=== PATIENT | male | born 1950 | race African-American/Black ===

== ENCOUNTER 2024-12-04 12:06 | Emergency (ER) | payer MEDICARE, MEDICAID ==
[~2024-12-04] VITALS: Ht 170.2 cm; Wt 77.0 kg
[2024-12-04 12:07] VITALS: O2SAT 99
[2024-12-04] MEDS ORDERED: SODIUM CHLORIDE 0.9% 1,000 ML IV ONE (13:30)
[2024-12-04 13:55] LABS: CHLORIDE 108 mEq/L (98-107); SODIUM 136 mEq/L (136-145)
[2024-12-04 13:56] LABS: CALCIUM 9.1 mg/dL (8.7-10.4); CARBON DIOXIDE 20 mEq/L (21-32)
[2024-12-04 14:01] LABS: CREATININE 1.4 mg/dL (0.6-1.3); GLUCOSE 107 mg/dL (70-105); UREA NITROGEN BLOOD 12 mg/dL (9-23)
[2024-12-04 14:02] LABS: TROPONIN I HIGH SENSITIVITY 4 ng/L (3.0-53)
[2024-12-04 14:21] LABS: BASOPHILS % 0.5 % (0.0-2.0); LYMPHOCYTES % 26.8 % (20.0-50.0); MEAN CORPUSCULAR HEMOGLOBIN 28.4 pg (28.0-32.0); MEAN CORPUSCULAR HGB CONC 34.2 g/dL (31.0-37.0); MEAN CORPUSCULAR VOLUME 83.2 fL (80.0-94.0); MEAN PLATELET VOLUME 8.7 fl (7.4-10.4); MONOCYTES % 8.5 % (2.0-8.0); NEUTROPHILS % 62.2 % (40.0-76.0); PLATELET 253 x1000/uL (130-400); RED BLOOD CELL COUNT 4.56 mill/uL (4.7-6.1); RED CELL DISTRIBUTION WIDTH 16.5 % (11.6-14.6); WHITE BLOOD COUNT 8.6 x1000/uL (4.5-11.0)
[2024-12-04 15:02] VITALS: BP 163/89; PULSE 84; RESP 11; TEMP 36.3; O2SAT 99
== END 2024-12-04 17:56 | disposition home or self-care (01) ==
LOC: ER 12:06
DX: R55 Syncope and collapse (principal); F17.200 Nicotine dependence, unspecified, uncomplicated; Z98.890 Other specified postprocedural states
CPT/HCPCS: 99284; 80048; 85025; 84484; 36415; 93005; J7030

== ENCOUNTER 2025-03-31 13:01 | Inpatient (IN) | payer MEDICARE, MEDICAID ==
[~2025-03-31] VITALS: Ht 170.2 cm; Wt 59.4 kg
[~2025-03-31 13:01] MED LIST: AMLO5TAB88 PO; AMOX250S70 MT; ATOR10TA MT; ATOR10TA PO; BETH5TAB10 MT; CEFT1VIA15 IV; CHOL100046; ENOX40DI8 SUBCUT; FAMO20TA8 PO; FERR-63 PO; FERR-71 MT; FINA-37 PO; FINA5TAB11 PO; GABA-1180 PO; GABA-290 MT; LISI40TA21 MT; LISI40TA21 PO; MIDO5TAB4 MT; PROT40 MT; SUCR1TAB PO; SUCR1TAB30 MT; TAMS-54 MT; TAMS-54 PO; TIZA4CAP MT
[2025-03-31 13:03] VITALS: O2SAT 98
[2025-03-31] MEDS: SODIUM CHLORIDE 0.9% (SEPSIS BOLUS) IV ONE (14:13)
[2025-03-31 14:23] LABS: BASOPHILS % 0.2 % (0.0-2.0); EOSINOPHILS % 0.0 % (0.0-5.0); HEMATOCRIT. 30.5 % (42.0-52.0); HEMOGLOBIN. 9.9 g/dL (14.0-18.0); LYMPHOCYTES % 10.3 % (20.0-50.0); MEAN PLATELET VOLUME 7.3 fl (7.4-10.4); MONOCYTES % 6.8 % (2.0-8.0); NEUTROPHILS % 82.7 % (40.0-76.0); PLATELET 635 x1000/uL (130-400); RED BLOOD CELL COUNT 3.84 mill/uL (4.7-6.1); RED CELL DISTRIBUTION WIDTH 15.4 % (11.6-14.6)
[2025-03-31] MEDS: AMPICILLIN SOD/SULBACTAM NA 3 G in SODIUM CHLORIDE 0.9% 100 ML IV STA (14:25)
[2025-03-31 14:32] LABS: INR 1.2
[2025-03-31 14:38] LABS: UREA NITROGEN BLOOD 12 mg/dL (9-23)
[2025-03-31 14:39] LABS: CREATININE 1.5 mg/dL (0.6-1.3)
[2025-03-31 14:40] LABS: ASPARTATE AMINOTRANSFERASE 130 IU/L (<34); BILIRUBIN DIRECT 1.5 mg/dL (<=3.0)
[2025-03-31 14:41] LABS: BILIRUBIN TOTAL 2.0 mg/dL (0.1-1.0); PROTEIN TOTAL 7.4 g/dL (6.0-8.3)
[2025-03-31] MEDS: VANCOMYCIN 1G PREMIX 200 ML IV ONE (15:11)
[2025-03-31 20:00] VITALS: BP 123/49; PULSE 112; RESP 19; TEMP 36.6; O2SAT 98
[2025-04-01] VITALS: BP 125/80; PULSE 118; RESP 19; TEMP 36.9; O2SAT 98
[2025-04-01] MEDS ORDERED: ONDANSETRON HCL 4MG/2ML INJ IV PRN (01:00)
[2025-04-01] MEDS ORDERED: DOCUSATE SODIUM 100MG CAPSULE PO PRN (01:00)
[2025-04-01] MEDS ORDERED: ACETAMINOPHEN 325MG TABLET PO PRN (01:00)
[2025-04-01] MEDS ORDERED: DEXTROSE 50% WATER 50ML SYRINGE IV PRN (01:00)
[2025-04-01] MEDS ORDERED: CLONIDINE 0.1MG TABLET PO PRN (01:00)
[2025-04-01] MEDS ORDERED: NA PHOS,M-B/NA PHOS,DI-BA ENEMA 118ML PR PRN (01:00)
[2025-04-01] MEDS ORDERED: MAGNESIUM/ALUMINUM HYDROXIDE/SIMETHICONE 30ML UDC PO PRN (01:00)
[2025-04-01] MEDS: SODIUM CHLORIDE 0.9% 1,000 ML IV SCH (01:35)
[2025-04-01 04:00] VITALS: BP 145/71; PULSE 108; RESP 19; TEMP 36.2; O2SAT 98
[2025-04-01] MEDS: PIPERACILLIN/TAZO 3.375G/50ML 50 ML IV SCH (06:08)
[2025-04-01] MEDS: HYDROCODONE/ACETAMINOPHEN 10/325MG TABLET PO PRN (06:08)
[2025-04-01] MEDS: BLOOD SUGAR DIAGNOSTIC STRIP TEST SCH (07:07)
[2025-04-01] MEDS: INSULIN LISPRO 100 UNITS/ML SUBCUT SCH (07:50)
[2025-04-01 08:00] VITALS: BP 145/78; PULSE 100; RESP 18; TEMP 36.6; O2SAT 98
[2025-04-01 08:39] LABS: BASOPHILS % 0.4 % (0.0-2.0); EOSINOPHILS % 0.1 % (0.0-5.0); HEMATOCRIT. 26.1 % (42.0-52.0); HEMOGLOBIN. 8.6 g/dL (14.0-18.0); LYMPHOCYTES % 7.1 % (20.0-50.0); MEAN PLATELET VOLUME 7.5 fl (7.4-10.4); MONOCYTES % 6.2 % (2.0-8.0); NEUTROPHILS % 86.2 % (40.0-76.0); PLATELET 544 x1000/uL (130-400); RED BLOOD CELL COUNT 3.40 mill/uL (4.7-6.1); RED CELL DISTRIBUTION WIDTH 14.9 % (11.6-14.6)
[2025-04-01] MEDS ORDERED: PANTOPRAZOLE 40MG DR TABLET PO SCH (09:00)
[2025-04-01 09:02] LABS: CREATININE 0.8 mg/dL (0.6-1.3)
[2025-04-01 09:03] LABS: ASPARTATE AMINOTRANSFERASE 69 IU/L (<34); UREA NITROGEN BLOOD 13 mg/dL (9-23)
[2025-04-01 09:04] LABS: BILIRUBIN TOTAL 1.1 mg/dL (0.1-1.0); PHOSPHORUS 2.3 mg/dL (2.5-4.9); PROTEIN TOTAL 6.7 g/dL (6.0-8.3)
[2025-04-01] MEDS: ENOXAPARIN 40MG/0.4ML SYR SUBCUT SCH (09:39)
[2025-04-01] MEDS: TAMSULOSIN HCL 0.4MG SR CAPSULE PO SCH (09:40)
[2025-04-01] MEDS: GABAPENTIN 300MG CAPSULE PO SCH (09:40)
[2025-04-01] MEDS: AMLODIPINE 5MG TABLET PO SCH (09:40)
[2025-04-01] MEDS: FINASTERIDE 5MG TABLET PO SCH (09:41)
[2025-04-01] MEDS: FERROUS SULFATE 325MG TABLET PO SCH (09:41)
[2025-04-01] MEDS: PANTOPRAZOLE 40MG DR TABLET PO SCH (09:42)
[2025-04-01] MEDS: ATORVASTATIN CALCIUM 10MG TABLET PO SCH (09:42)
[2025-04-01 12:00] VITALS: BP 154/66; PULSE 72; RESP 18; TEMP 36.7; O2SAT 98
[2025-04-01] MEDS: POTASSIUM CHLORIDE 20MEQ TABLET SR PO SCH (13:05)
[2025-04-01] MEDS: SUCRALFATE 1G TABLET PO SCH (14:06)
[2025-04-01] MEDS ORDERED: VANCOMYCIN 1GM/200ML PMX (BAXTER) IV SCH (15:30)
[2025-04-01 16:00] VITALS: BP 150/70; PULSE 80; RESP 18; TEMP 36.9; O2SAT 98
[2025-04-01] MEDS: VANCOMYCIN 1.25GM/250ML 250 ML IV SCH (18:20)
[2025-04-01 20:00] VITALS: BP 136/77; PULSE 102; RESP 18; TEMP 36.8; O2SAT 98
[2025-04-02] VITALS: BP 115/63; PULSE 94; RESP 18; TEMP 37.1; O2SAT 96
[2025-04-02 04:00] VITALS: BP 133/74; PULSE 104; RESP 16; TEMP 36.8; O2SAT 96
[2025-04-02 08:00] VITALS: BP 124/63; PULSE 99; RESP 18; TEMP 36.4; O2SAT 98
[2025-04-02 12:00] VITALS: BP_SYST 128; BP_SYST 138; BP_DIAS 68; BP_DIAS 71; PULSE 92; PULSE 94; RESP 18; TEMP 36.1; TEMP 36.4; O2SAT 96; O2SAT 98
[2025-04-02] MEDS ORDERED: LIDOCAINE HCL 1% 10 MG/ML 10ML VIAL ONE (13:34)
[2025-04-02 16:00] VITALS: BP 128/68; PULSE 94; RESP 18; TEMP 36.2; O2SAT 98
[2025-04-02] MEDS ORDERED: NALOXONE HCL 0.4MG/ML VIAL IV PRN (17:45)
[2025-04-02 20:00] VITALS: BP 125/108; PULSE 92; RESP 18; TEMP 36.8; O2SAT 96
[2025-04-03] VITALS (7 sets, daily range): BP systolic 121–154; BP diastolic 54–108; PULSE 89–103; RESP 17–18; TEMP 35.9–36.7; O2SAT 96–99
[2025-04-03 13:13] LABS: BASOPHILS % 0.3 % (0.0-2.0); EOSINOPHILS % 1.5 % (0.0-5.0); HEMATOCRIT. 24.5 % (42.0-52.0); HEMOGLOBIN. 8.3 g/dL (14.0-18.0); LYMPHOCYTES % 9.8 % (20.0-50.0); MEAN PLATELET VOLUME 7.8 fl (7.4-10.4); MONOCYTES % 6.1 % (2.0-8.0); NEUTROPHILS % 82.3 % (40.0-76.0); PLATELET 584 x1000/uL (130-400); RED BLOOD CELL COUNT 3.21 mill/uL (4.7-6.1); RED CELL DISTRIBUTION WIDTH 14.6 % (11.6-14.6)
[2025-04-03 13:30] LABS: CREATININE 0.7 mg/dL (0.6-1.3); UREA NITROGEN BLOOD 7 mg/dL (9-23)
[2025-04-03] MEDS: POTASSIUM CHLORIDE 20MEQ TABLET SR PO SCH (18:00)
[2025-04-04] VITALS: BP 134/74; PULSE 99; RESP 18; TEMP 36.9; O2SAT 96
[2025-04-04 04:00] VITALS: BP 148/68; PULSE 81; RESP 17; TEMP 36.4; O2SAT 97
[2025-04-04 07:34] LABS: BASOPHILS % 0.3 % (0.0-2.0); EOSINOPHILS % 2.4 % (0.0-5.0); HEMATOCRIT. 24.9 % (42.0-52.0); HEMOGLOBIN. 8.4 g/dL (14.0-18.0); LYMPHOCYTES % 11.5 % (20.0-50.0); MEAN PLATELET VOLUME 7.6 fl (7.4-10.4); MONOCYTES % 5.9 % (2.0-8.0); NEUTROPHILS % 79.9 % (40.0-76.0); PLATELET 535 x1000/uL (130-400); RED BLOOD CELL COUNT 3.25 mill/uL (4.7-6.1); RED CELL DISTRIBUTION WIDTH 15.0 % (11.6-14.6)
[2025-04-04 07:52] LABS: CREATININE 0.7 mg/dL (0.6-1.3); UREA NITROGEN BLOOD 5 mg/dL (9-23)
[2025-04-04 08:30] VITALS: BP 130/77; PULSE 93; RESP 18; TEMP 36.6; O2SAT 98
[2025-04-04] MEDS: POTASSIUM CHLORIDE 20MEQ TABLET SR PO SCH (10:46)
[2025-04-04 12:00] VITALS: BP 123/57; PULSE 97; RESP 18; TEMP 36.4; O2SAT 97
[2025-04-04 16:00] VITALS: BP 117/63; PULSE 96; RESP 18; TEMP 36.2; O2SAT 96
[2025-04-04 20:00] VITALS: BP 119/60; PULSE 100; RESP 18; TEMP 37.2; O2SAT 96
[2025-04-05] VITALS: BP 113/58; PULSE 88; RESP 19; TEMP 36.9; O2SAT 97
[2025-04-05] MEDS: DEXT 5% WATER 250 ML IV ONE (00:39)
[2025-04-05 04:00] VITALS: BP 130/67; PULSE 90; RESP 19; TEMP 36.3; O2SAT 98
[2025-04-05] MEDS: IPRATROPIUM/ALBUTEROL 0.5-3(2.5)MG/3ML NEB HHN PRN (05:13)
[2025-04-05 08:00] VITALS: BP 131/60; PULSE 87; RESP 16; TEMP 37; O2SAT 96
[2025-04-05 12:00] VITALS: BP 106/53; PULSE 91; TEMP 36.8; O2SAT 98
[2025-04-05 16:00] VITALS: BP 108/52; PULSE 97; RESP 18; TEMP 36.9; O2SAT 98
[2025-04-05 20:00] VITALS: BP 115/55; PULSE 109; RESP 18; TEMP 36.9; O2SAT 96
[2025-04-06] VITALS: BP 136/71; PULSE 98; RESP 17; TEMP 37; O2SAT 99
[2025-04-06 04:00] VITALS: BP 126/61; PULSE 90; RESP 18; TEMP 36.7; O2SAT 98
[2025-04-06 08:00] VITALS: BP 136/65; PULSE 101; RESP 16; TEMP 36.6; O2SAT 96
[2025-04-06 11:45] LABS: BASOPHILS % 0.2 % (0.0-2.0); EOSINOPHILS % 2.2 % (0.0-5.0); HEMATOCRIT. 23.9 % (42.0-52.0); HEMOGLOBIN. 7.8 g/dL (14.0-18.0); LYMPHOCYTES % 10.3 % (20.0-50.0); MEAN PLATELET VOLUME 7.8 fl (7.4-10.4); MONOCYTES % 6.8 % (2.0-8.0); NEUTROPHILS % 80.5 % (40.0-76.0); PLATELET 592 x1000/uL (130-400); RED BLOOD CELL COUNT 3.09 mill/uL (4.7-6.1); RED CELL DISTRIBUTION WIDTH 14.9 % (11.6-14.6)
[2025-04-06 11:54] LABS: INR 1.1
[2025-04-06 12:00] VITALS: BP 141/71; PULSE 107; RESP 17; TEMP 36.2; O2SAT 96
[2025-04-06 12:03] LABS: UREA NITROGEN BLOOD 15 mg/dL (9-23)
[2025-04-06 12:05] LABS: PHOSPHORUS 1.6 mg/dL (2.5-4.9)
[2025-04-06 12:06] LABS: CREATININE 2.1 mg/dL (0.6-1.3)
[2025-04-06] MEDS ORDERED: PHENYLEPHRINE HCL 10MG/ML 1ML IV ONE (13:31)
[2025-04-06] MEDS ORDERED: PROPOFOL 200MG/20ML VIAL IV ONE (13:31)
[2025-04-06] MEDS ORDERED: IODIXANOL 320 MG/ML 150ML BOTTLE IV ONE (13:37)
[2025-04-06] MEDS ORDERED: MIDAZOLAM HCL 2 MG/2 ML VIAL ONE (13:42)
[2025-04-06] MEDS ORDERED: DEXAMETHASONE 4MG/ML 1ML VIAL ONE (14:08)
[2025-04-06] MEDS ORDERED: EPHEDRINE SULFATE 50MG/ML VIAL ONE (14:08)
[2025-04-06] MEDS ORDERED: ONDANSETRON HCL 4MG/2ML INJ ONE (14:08)
[2025-04-06] MEDS: CLOPIDOGREL 75MG TABLET PO SCH (15:15)
[2025-04-06] MEDS ORDERED: HYDRALAZINE 20MG/ML VIAL IV PRN ×2 (15:30)
[2025-04-06] MEDS ORDERED: LABETALOL 5MG/ML 4ML INJ IV PRN (15:30)
[2025-04-06] MEDS ORDERED: ONDANSETRON HCL 4MG/2ML INJ IV PRN (15:30)
[2025-04-06] MEDS: HYDROMORPHONE HCL/PF 1MG/ML INJ IV PRN (18:30)
[2025-04-06 20:00] VITALS: BP_SYST 133; BP_SYST 136; BP_DIAS 70; BP_DIAS 76; PULSE 80; PULSE 83; RESP 18; TEMP 36.6; TEMP 37; O2SAT 100
[2025-04-07] VITALS (10 sets, daily range): BP systolic 101–140; BP diastolic 52–68; PULSE 64–86; RESP 18–20; TEMP 35.66952–36.8; O2SAT 97–100
[2025-04-07] MEDS ORDERED: POLYMYXIN B SULFATE 500000 UNITS/VIAL ONE (09:00)
[2025-04-07] MEDS ORDERED: VANCOMYCIN HCL 1GM VIAL ONE (09:00)
[2025-04-07] MEDS ORDERED: LIDOCAINE HCL/EPINEPHRINE 1%-EPI 1:100,000 20ML VIAL ONE (09:01)
[2025-04-07 09:45] LABS: PLATELET 625 x1000/uL (130-400); RED BLOOD CELL COUNT 3.54 mill/uL (4.7-6.1); RED CELL DISTRIBUTION WIDTH 15.6 % (11.6-14.6)
[2025-04-07 10:01] LABS: CREATININE 1.9 mg/dL (0.6-1.3); UREA NITROGEN BLOOD 20.0 mg/dL (9-23)
[2025-04-07 10:07] LABS: INR 1.1
[2025-04-07] MEDS ORDERED: BUPIVACAINE HCL/PF 0.5% (5MG/ML) 10ML ONE (10:11)
[2025-04-07] MEDS ORDERED: ETOMIDATE 2MG/ML 10ML VIAL IV ONE (10:45)
[2025-04-07] MEDS ORDERED: PROPOFOL 200MG/20ML VIAL IV ONE (10:45)
[2025-04-07] MEDS ORDERED: FENTANYL CITRATE/PF 50MCG/ML 2ML VIAL ONE (10:45)
[2025-04-07] MEDS ORDERED: MIDAZOLAM HCL 2 MG/2 ML VIAL ONE (10:46)
[2025-04-07] MEDS ORDERED: NEOSTIGMINE METHYLSULFATE 1MG/ML 10 ML VIAL ONE (11:34)
[2025-04-07] MEDS ORDERED: GLYCOPYRROLATE 0.2 MG/ML 2ML VIAL ONE (11:34)
[2025-04-07] MEDS ORDERED: HYDROMORPHONE HCL/PF 2MG/ML INJ ONE (11:44)
[2025-04-07] MEDS ORDERED: HYDRALAZINE 20MG/ML VIAL IV PRN ×2 (12:00)
[2025-04-07] MEDS ORDERED: FAMOTIDINE 20MG/2ML VIAL IV PRN (12:00)
[2025-04-07] MEDS ORDERED: ACETAMINOPHEN 1,000MG/100ML PREMIX IV PRN (12:00)
[2025-04-07] MEDS ORDERED: ONDANSETRON HCL 4MG/2ML INJ IV PRN (12:00)
[2025-04-07] MEDS ORDERED: LABETALOL 5MG/ML 4ML INJ IV PRN (12:00)
[2025-04-07] MEDS ORDERED: MEPERIDINE HCL/PF 25MG/ML CPJ IV PRN (12:00)
[2025-04-07] MEDS ORDERED: HYDROMORPHONE HCL/PF 1MG/ML INJ IV PRN (12:00)
[2025-04-08] VITALS: BP 123/59; PULSE 81; RESP 20; TEMP 36.4; O2SAT 97
[2025-04-08 04:00] VITALS: BP 138/79; PULSE 72; RESP 21; TEMP 36.1; O2SAT 98
[2025-04-08 06:55] LABS: CREATININE 1.9 mg/dL (0.6-1.3); UREA NITROGEN BLOOD 22.0 mg/dL (9-23)
[2025-04-08 07:06] LABS: BASOPHILS % 0.1 % (0.0-2.0); EOSINOPHILS % 0.0 % (0.0-5.0); HEMATOCRIT. 27.0 % (42.0-52.0); HEMOGLOBIN. 9.3 g/dL (14.0-18.0); LYMPHOCYTES % 7.6 % (20.0-50.0); MEAN PLATELET VOLUME 7.8 fl (7.4-10.4); MONOCYTES % 6.4 % (2.0-8.0); NEUTROPHILS % 85.9 % (40.0-76.0); PLATELET 635 x1000/uL (130-400); RED BLOOD CELL COUNT 3.51 mill/uL (4.7-6.1); RED CELL DISTRIBUTION WIDTH 15.4 % (11.6-14.6)
[2025-04-08 08:00] VITALS: BP 142/67; PULSE 85; RESP 20; TEMP 36.7; O2SAT 98
[2025-04-08 12:00] VITALS: BP 115/64; PULSE 94; RESP 18; TEMP 36.9; O2SAT 99
[2025-04-08 16:00] VITALS: BP 118/62; PULSE 71; RESP 18; TEMP 36.9; O2SAT 98
[2025-04-08 20:00] VITALS: BP 118/55; PULSE 70; RESP 20; TEMP 36.3; O2SAT 97
[2025-04-09] VITALS: BP 119/68; PULSE 80; RESP 19; TEMP 36.1; O2SAT 97
[2025-04-09 04:00] VITALS: BP_SYST 127; BP_SYST 169; BP_DIAS 57; BP_DIAS 99; PULSE 67; PULSE 73; RESP 18; RESP 20; TEMP 35.9; TEMP 36.2; O2SAT 97
[2025-04-09] MEDS: SODIUM CHLORIDE 0.45% 1,000 ML IV SCH (04:30)
[2025-04-09 07:15] LABS: BASOPHILS % 0.2 % (0.0-2.0); EOSINOPHILS % 1.1 % (0.0-5.0); HEMATOCRIT. 28.3 % (42.0-52.0); HEMOGLOBIN. 9.4 g/dL (14.0-18.0); LYMPHOCYTES % 13.7 % (20.0-50.0); MEAN PLATELET VOLUME 7.5 fl (7.4-10.4); MONOCYTES % 8.0 % (2.0-8.0); NEUTROPHILS % 77.0 % (40.0-76.0); PLATELET 684 x1000/uL (130-400); RED BLOOD CELL COUNT 3.66 mill/uL (4.7-6.1); RED CELL DISTRIBUTION WIDTH 15.7 % (11.6-14.6)
[2025-04-09 07:27] LABS: CREATININE 1.9 mg/dL (0.6-1.3); UREA NITROGEN BLOOD 22.0 mg/dL (9-23)
[2025-04-09 08:00] VITALS: BP 133/55; PULSE 68; RESP 20; TEMP 36.1; O2SAT 98
[2025-04-09 12:00] VITALS: BP 131/69; PULSE 83; RESP 20; TEMP 36.1; O2SAT 98
[2025-04-09 16:00] VITALS: BP 125/83; PULSE 74; RESP 18; TEMP 36.1; O2SAT 97
[2025-04-09 20:00] VITALS: BP 127/66; PULSE 77; RESP 20; TEMP 36.3; O2SAT 97
[2025-04-10] VITALS: BP 127/60; PULSE 69; RESP 19; TEMP 36.3; O2SAT 98
[2025-04-10] MEDS: ACETAMINOPHEN 325MG TABLET PO PRN (01:49)
[2025-04-10 04:00] VITALS: BP 141/73; PULSE 81; RESP 18; TEMP 36.2; O2SAT 97
[2025-04-10 08:00] VITALS: BP 153/68; PULSE 67; RESP 16; TEMP 36.2; O2SAT 98
[2025-04-10 12:00] VITALS: BP 156/69; PULSE 72; RESP 16; TEMP 36.1; O2SAT 97
[2025-04-10] MEDS ORDERED: CLOP-31 PO (12:11)
[2025-04-10] MEDS ORDERED: VANCOMYCIN 500 MG in DEXT 5% WATER 100 ML IV SCH (14:00)
[2025-04-10 16:00] VITALS: BP 154/68; PULSE 70; RESP 17; TEMP 36.2; O2SAT 98
[2025-04-10 20:00] VITALS: BP_SYST 115; BP_SYST 157; BP_DIAS 55; BP_DIAS 93; PULSE 101; PULSE 78; RESP 18; RESP 19; TEMP 36.4; O2SAT 100; O2SAT 98
[2025-04-11] VITALS (7 sets, daily range): BP systolic 112–149; BP diastolic 61–97; PULSE 68–85; RESP 17–22; TEMP 36.2–37.5; O2SAT 98–100
[2025-04-11 07:27] LABS: BASOPHILS % 0.4 % (0.0-2.0); EOSINOPHILS % 3.3 % (0.0-5.0); HEMATOCRIT. 26.9 % (42.0-52.0); HEMOGLOBIN. 9.0 g/dL (14.0-18.0); LYMPHOCYTES % 12.0 % (20.0-50.0); MEAN PLATELET VOLUME 7.5 fl (7.4-10.4); MONOCYTES % 4.4 % (2.0-8.0); NEUTROPHILS % 79.9 % (40.0-76.0); PLATELET 714 x1000/uL (130-400); RED BLOOD CELL COUNT 3.46 mill/uL (4.7-6.1); RED CELL DISTRIBUTION WIDTH 16.1 % (11.6-14.6)
[2025-04-11 07:45] LABS: CREATININE 1.8 mg/dL (0.6-1.3)
[2025-04-11 07:46] LABS: UREA NITROGEN BLOOD 22 mg/dL (9-23)
[2025-04-11 07:48] LABS: PHOSPHORUS 3.6 mg/dL (2.5-4.9)
[2025-04-11] MEDS: ENOXAPARIN 80MG/0.8ML SYR SUBCUT ONE ×2 (10:24→10:25)
[2025-04-11] MEDS: POTASSIUM CHLORIDE 20MEQ TABLET SR PO NR (17:08)
[2025-04-11] MEDS ORDERED: HYDROMORPHONE HCL/PF 1MG/ML INJ IM PRN (22:48)
[2025-04-11] MEDS: HYDROMORPHONE HCL/PF 1MG/ML INJ IV PRN (23:06)
[2025-04-12 04:00] VITALS: BP 131/85; PULSE 89; RESP 18; TEMP 36.3; O2SAT 100
[2025-04-12] MEDS ORDERED: HYDROMORPHONE HCL/PF 1MG/ML INJ IM PRN (04:48)
[2025-04-12] MEDS ORDERED: NALOXONE HCL 0.4MG/ML VIAL IV PRN (06:45)
[2025-04-12 08:00] VITALS: BP 213/105; PULSE 81; RESP 17; TEMP 36.7; O2SAT 98
[2025-04-12] MEDS: FERROUS SULFATE 325MG TABLET PO SCH (08:12)
[2025-04-12] MEDS: ENOXAPARIN 30MG/0.3ML SYR SUBCUT SCH (08:14)
[2025-04-12 08:25] LABS: BASOPHILS % 0.4 % (0.0-2.0); EOSINOPHILS % 2.3 % (0.0-5.0); HEMATOCRIT. 29.2 % (42.0-52.0); HEMOGLOBIN. 9.6 g/dL (14.0-18.0); LYMPHOCYTES % 14.0 % (20.0-50.0); MEAN PLATELET VOLUME 7.1 fl (7.4-10.4); MONOCYTES % 5.7 % (2.0-8.0); NEUTROPHILS % 77.6 % (40.0-76.0); PLATELET 778 x1000/uL (130-400); RED BLOOD CELL COUNT 3.77 mill/uL (4.7-6.1); RED CELL DISTRIBUTION WIDTH 16.6 % (11.6-14.6)
[2025-04-12 08:38] LABS: UREA NITROGEN BLOOD 19 mg/dL (9-23)
[2025-04-12 08:40] LABS: PHOSPHORUS 4.1 mg/dL (2.5-4.9)
[2025-04-12 08:53] LABS: CREATININE 1.7 mg/dL (0.6-1.3)
[2025-04-12] MEDS ORDERED: HYDROCODONE/ACETAMINOPHEN 5/325MG TABLET PO PRN (10:30)
[2025-04-12] MEDS ORDERED: POTASSIUM CHLORIDE 20MEQ TABLET SR PO NR (11:15)
[2025-04-12] MEDS ORDERED: MAGNESIUM 2 G PREMIX 50 ML IV NR (11:15)
[2025-04-12] MEDS ORDERED: HYDR-4001 MT (11:26)
[2025-04-12 12:00] VITALS: BP 157/73; PULSE 87; RESP 17; TEMP 36.4; O2SAT 99
[2025-04-12] MEDS: MAGNESIUM 2 G PREMIX 50 ML IV NR (15:09)
[2025-04-12] MEDS: POTASSIUM CHLORIDE 20MEQ TABLET SR PO NR (15:09)
[2025-04-12 16:00] VITALS: BP 132/72; PULSE 85; RESP 18; TEMP 36.6; O2SAT 96
[2025-04-12 16:08] VITALS: BP 132/72; PULSE 85; RESP 16; TEMP 97.8
== END 2025-04-12 17:30 | disposition home health service (06) | DRG 853 ==
LOC: ER 13:01 → 6WST 15:00 → EDBEDREQ 15:01 → ENRESERV 15:36 → 7EST 04-11 13:00
PROVIDERS: ADMIT Family Medicine Adult Medicine; ATTEND Family Medicine Adult Medicine
PROC: 02HV33Z Insertion of Infusion Device into Superior Vena Cava, Percutaneous Approach (ICD-10-PCS; 2025-04-02)
PROC: B548ZZA Ultrasonography of Superior Vena Cava, Guidance (ICD-10-PCS; 2025-04-02)
PROC: 047H3ZZ Dilation of Right External Iliac Artery, Percutaneous Approach (ICD-10-PCS; principal; 2025-04-06)
PROC: 04CK3ZZ Extirpation of Matter from Right Femoral Artery, Percutaneous Approach (ICD-10-PCS; 2025-04-06)
PROC: 04CM3ZZ Extirpation of Matter from Right Popliteal Artery, Percutaneous Approach (ICD-10-PCS; 2025-04-06)
PROC: 047M3ZZ Dilation of Right Popliteal Artery, Percutaneous Approach (ICD-10-PCS; 2025-04-06)
PROC: 047K3ZZ Dilation of Right Femoral Artery, Percutaneous Approach (ICD-10-PCS; 2025-04-06)
PROC: B41F1ZZ Fluoroscopy of Right Lower Extremity Arteries using Low Osmolar Contrast (ICD-10-PCS; 2025-04-06)
PROC: 0Y6D0Z3 Detachment at Left Upper Leg, Low, Open Approach (ICD-10-PCS; 2025-04-07)
PROC: 30233N1 Transfusion of Nonautologous Red Blood Cells into Peripheral Vein, Percutaneous Approach (ICD-10-PCS; 2025-04-07)
PROC: 0JB70ZZ Excision of Back Subcutaneous Tissue and Fascia, Open Approach (ICD-10-PCS; 2025-04-09)
DX: A41.9 Sepsis, unspecified organism (principal); G82.50 Quadriplegia, unspecified; L89.153 Pressure ulcer of sacral region, stage 3; N17.9 Acute kidney failure, unspecified; E11.52 Type 2 diabetes mellitus with diabetic peripheral angiopathy with gangrene; M86.8X6 Other osteomyelitis, lower leg; L97.419 Non-pressure chronic ulcer of right heel and midfoot with unspecified severity; L03.116 Cellulitis of left lower limb; I70.262 Atherosclerosis of native arteries of extremities with gangrene, left leg; E11.621 Type 2 diabetes mellitus with foot ulcer; E11.69 Type 2 diabetes mellitus with other specified complication; D64.9 Anemia, unspecified; I10 Essential (primary) hypertension; N40.0 Benign prostatic hyperplasia without lower urinary tract symptoms; K21.9 Gastro-esophageal reflux disease without esophagitis; E78.5 Hyperlipidemia, unspecified; D75.839 Thrombocytosis, unspecified; S81.802A Unspecified open wound, left lower leg, initial encounter; Z79.02 Long term (current) use of antithrombotics/antiplatelets; Z79.4 Long term (current) use of insulin; Z79.899 Other long term (current) drug therapy; Z89.612 Acquired absence of left leg above knee; Z82.49 Family history of ischemic heart disease and other diseases of the circulatory system; X58.XXXA Exposure to other specified factors, initial encounter; Y93.89 Activity, other specified; Y92.89 Other specified places as the place of occurrence of the external cause; Y99.8 Other external cause status
CPT/HCPCS: 36415; 36573; 37225; 71045; 73620; 75710; 76770; 80048; 80053; 80076; 80202; 82306; 82550; 82962; 83036; 83605; 83735; 84100; 84145; 85025; 85027; 85347; 85384; 86850; 86900; 86920; 88307; 88311; 93005; 93970; 96365; 99291; A4606; C1725; C1769; C1887; C1893; C1894; C2623; J0295; J0665; J1100; J1171; J1650; J2003; J2004; J2250; J2371; J2405; J2543; J2704; J2710; J3010; J3373; J3475; J3490; J7030; J7050; J7060; P9016; Q9967; A4217; C1714